=== PATIENT | male | born 1955 | race Caucasian/White ===

== ENCOUNTER → 2016-11-30 | Outpatient (CLI) | payer BC ==
--- NOTE | 2016-11-30 14:21 | PCVCIMAG ---
APPROVED REPORT Exam: Stress Echocardiogram Indication: Syncope, Hypertension, Hyperlipidemia, Dyspnea Patient Location: Echo lab Stress Nurse: Luz Bernal RN Status: routine Ht: 5 ft 9 in HR: 64 bpm BP: 140/86 mmHg Procedure The patient underwent an Exercise Stress Test using the Mikie Protocol. Blood pressure, heart rate, and EKG were monitored. An Echocardiogram was performed by healthcare technician in four stages in quad fashion. At peak stress, four selected images were obtained and placed side by side with resting images for comparison. Stress Test Details Stress Test: Exercise stress testing was performed using a Mikie protocol. HR Resting HR: 64 bpmMax Heart Rate (APMHR): 160 bpm Max HR Achieved: 155 bpmTarget HR (85% APMHR): 136 bpm % of APMHR: 96 HR response to stress: Normal HR response to stress BP Resting BP: 140/86 mmHg Max BP: 174/104 mmHg ECG Resting ECG: Sinus Rhythm Clinical Reason for Termination: Maximal effort Stress Symptoms: Fatigue Exercise duration: 13 min 52 sec Highest Stage Achieved: Stage 5: 5.0 mph at 18% grade. Exercise capacity: 17.20 METs Overall Exercise Capacity for Age: Good Pre-Stress Echo The resting Echocardiogram showed normal left ventricular contractility with an estimated Ejection Fraction of about 55-60%. Post-Stress Echo The stress Echocardiogram showed normal left ventricular contractility with an estimated Ejection Fraction of about 60-65%. Normal augmentation of wall motion in all segments on post stress images. Clinical No clinical or ECG evidence for ischemia. Conclusion Clinical Response: Non-ischemic Exercise Capacity: Average Stress ECG Response: Non-ischemic Stress Echo Images: Non-ischemic The left ventricle is normal in size and wall thickness in both the rest and stress images. Other Information Study Quality: Good <Conclusion> The left ventricle is normal in size and wall thickness in both the rest and stress images.
--- NOTE | 2016-11-30 23:10 | PCVCIMAG ---
EXAM: BILATERAL CAROTID DUPLEX INDICATION: Carotid Occlusive Disease. FINDINGS: Doppler Measurements (centimeters per second): RIGHT: Peak CCA-135, Peak ECA-225, Diastolic ICA-19, Peak ICA-94, ICA/CCA Ratio-0.7. LEFT: Peak CCA-141, Peak ECA-170, Diastolic ICA-27, Peak ICA-81, ICA/CCA Ratio-0.6. RIGHT CAROTID: The carotid bulb has minimal plaque. The proximal internal carotid artery shows no significant stenosis. The common carotid artery shows no significant stenosis. The external carotid artery shows 70% stenosis. LEFT CAROTID: The carotid bulb has minimal plaque. The proximal internal carotid artery shows no significant stenosis. The common carotid artery shows no significant stenosis. The external carotid artery shows 60% stenosis. Antegrade flow in both vertebral arteries. IMPRESSION: No significant stenosis of the right internal carotid artery with minimal plaque. No significant stenosis of the left internal carotid artery with minimal plaque. LOC:OFFICE
== END | disposition home or self-care (01) ==
LOC: PCVCIMAG 12:56
PROVIDERS: ATTEND Internal Medicine Cardiovascular Disease
DX: I65.23 Occlusion and stenosis of bilateral carotid arteries (principal); I10 Essential (primary) hypertension; E78.5 Hyperlipidemia, unspecified
CPT/HCPCS: 93325; 93351; 93880